=== PATIENT | female | born 2000 | race African-American/Black ===

== ENCOUNTER 2024-02-13 11:52 | Emergency (ER) | payer OTHER, MEDICAID, SELFPAY ==
[2024-02-13 11:54] VITALS: BP 121/66; PULSE 85; RESP 16; TEMP 36.6; O2SAT 98; BMI 34.2
--- NOTE | 2024-02-13 12:09 | ED.VIS.FEGU ---
HPI <DANA Dior - Last Filed: 02/13/24 15:18> HPI - Female History of Present Illness Chief Complaint: Vag Bld, Preg Narrative Narrative: 23-year-old female states she is about 13 weeks . A week and a half ago she had a blood clot passed. 2 days ago she had an ultrasound at [facility] in [place] confirming an intrauterine with a heartbeat detected. Today around 9 AM she started to have light vaginal bleeding and abdominal cramping. She states she is just using toilet paper in her underwear. She has no fever, chills, nausea, vomiting, or urinary symptoms. She has history of 2 C-sections. She is not on any medications. PFSH <DANA Dior - Last Filed: 02/13/24 15:18> PFSH Medical History no medical history Home Medications NK 02/13/24 [History Last Taken Unknown] Allergy/AdvReac Type Severity Reaction Status Date / Time No Known Allergies Allergy Verified 02/13/24 11:54 Surgical History (Updated 02/13/24 @ 12:07 by Tatianna Juarez) Previous section Social History Smoking Status: Current every day smoker tobacco type: e-cigarettes ROS <DANA Dior - Last Filed: 02/13/24 15:18> ROS ED ROS Narrative Constitutional: Negative for fever, chills, malaise. GI: Positive for abdominal pain. Negative for nausea, vomiting : Negative for dysuria, hematuria or frequency. EXAM <DANA Dior - Last Filed: 02/13/24 15:18> Physical Exam Narrative Exam Narrative: CONST: Patient sitting in no acute distress. EYES: Normal inspection. NECK: Normal inspection. RESP: No respiratory distress, CTAB. CVS: Regular rate and rhythm, no murmur, no gallop. ABD: Soft with suprapubic tenderness, no guarding or rebound, nondistended. SKIN: Color normal, no rash, warm, dry, intact. EXTREMITIES: Normal appearance, no pedal edema. NEURO: Alert and answering questions appropriately. PSYCH: Normal affect. Const Vital Signs: 02/13/24 11:54 02/13/24 13:54 02/13/24 15:01 Temperature 97.9 F 98.0 F Temperature Source Temporal Pulse Rate 85 18 L 62 Respiratory Rate 16 22 H 16 Blood Pressure 121/66 H 157/124 H 110/71 Blood Pressure Mean 84 135 84 Pulse Ox 98 98 99 Oxygen Delivery Method Room Air Room Air <Dr. Kehinde Lomeli DO - Last Filed: 02/13/24 15:28> Physical Exam Const Vital Signs: 02/13/24 11:54 02/13/24 13:54 02/13/24 15:01 Temperature 97.9 F 98.0 F Temperature Source Temporal Pulse Rate 85 18 L 62 Respiratory Rate 16 22 H 16 Blood Pressure 121/66 H 157/124 H 110/71 Blood Pressure Mean 84 135 84 Pulse Ox 98 98 99 Oxygen Delivery Method Room Air Room Air MDM <DANA Dior - Last Filed: 02/13/24 15:18> MDM MDM Narrative Medical decision making narrative: External records reviewed from [facility] 02/10/2024 hCG quant is 37,283 02/11/24 transabdominal ultrasound shows single live fetus with a gestational age of 13 weeks, 6 days. Differential: Threatened , incomplete versus complete Consults: [facility] 23-year-old female states she is about 13 weeks confirmed by an ultrasound earlier this week. She presents with abdominal pain and bleeding. She appears well and nontoxic and has stable vital signs. Abdomen is soft with mild suprapubic tenderness. Labs show normal hemoglobin of 12.1. hCG quant is 25,825 which has dropped from outside records three days ago when it was 37,283. She is O+ so does not need RhoGAM. Urinalysis shows blood but no infection. While here patient used the restroom and states she has increased abdominal pain and heavier bleeding. I performed a pelvic exam and there is a moderate amount of fresh bright red blood in the vault. She is not hemorrhaging. I cannot fully visualize her cervix. Initially her pain was treated with [place] and Zofran by mouth but prior to getting the ultrasound she had increased pain and was given a dose of IV morphine 4 mg and Zofran. The profile grinder technician states she could see a fetus with a heartbeat but it is in the lower cervix indicating a miscarriage. I spoke with on-call [facility] physician, Dr. Darby, who recommended since she is around 14 weeks she should be transferred there since bleeding could become significant. Official report shows 13-week 5-day threatened in progress. I explained these findings to the patient and she is comfortable with this plan. Plan will be for EMS transport to [facility] triage. Lab Data Attestation: I reviewed the patient's lab results. Labs: Laboratory Results - last 24 hr 02/13/24 02/13/24 12:10 12:42 WBC 12.6 H RBC 4.08 L Hgb 12.1 Hct 35.3 L MCV 86.5 MCH 29.7 MCHC 34.3 RDW Std Deviation 46.9 H RDW Coeff of Uday 14.7 H Plt Count 382 MPV 8.9 Immature Gran % (Auto) 0.400 Neut % (Auto) 69.2 Lymph % (Auto) 24.1 [place] % (Auto) 5.3 Eos % (Auto) 0.8 Baso % (Auto) 0.2 Absolute Neuts (auto) 8.7 H Absolute Lymphs (auto) 3.04 Nucleated RBC % 0 HCG, Quant 77514 H Urine Color Yellow Urine Clarity Sl. Cloudy Urine pH 7.0 Ur Specific [place] 1.015 Urine Protein 30 H Urine Glucose (UA) Normal Urine Ketones Negative Urine Occult Blood 250 H Urine Nitrite Negative Urine Bilirubin Negative Urine Urobilinogen Normal Ur Leukocyte Esterase 500 H Urine RBC > 100 SEEN Urine WBC 5-10 SEEN Ur Squamous Epith Cells 0-5 SEEN Urine Bacteria 0 SEEN Urine Mucus 0 SEEN Urine Trichomonas 0-5 SEEN Blood Type O POSITIVE Radiography Diagnostic Testing: Clinical Impression(s) from Imaging Studies Obstetrics Ultrasound 02/13/24 13:02 IMPRESSION: 13 week 5 day threatened AB in progress N.B. : The above Results were Read Back by Burt Sharma MD to DANA Dior, and understanding confirmed on 02/13/2024 15:12:46 (ET). Electronically Signed: Burt Sharma MD at 15:13 EDT , ADDENDUM: 02/13/24 5810 IMPRESSION: 13 week 5 day threatened AB in progress N.B. : The above Results were Read Back by Burt Sharma MD to DANA Dior, and understanding confirmed on 02/13/2024 15:12:46 (ET). Electronically Signed: Burt Sharma MD at 15:13 EDT , <Dr. Kehinde oLmeli, DO - Last Filed: 02/13/24 15:28> MDM MDM Narrative Medical decision making narrative: External records reviewed from [facility] 02/10/2024 hCG quant is 37,283 02/11/24 transabdominal ultrasound shows single live fetus with a gestational age of 13 weeks, 6 days. Differential: Threatened , incomplete versus complete Consults: [facility] 23-year-old female states she is about 13 weeks confirmed by an ultrasound earlier this week. She presents with abdominal pain and bleeding. She appears well and nontoxic and has stable vital signs. Abdomen is soft with mild suprapubic tenderness. Labs show normal hemoglobin of 12.1. hCG quant is 25,825 which has dropped from outside records three days ago when it was 37,283. She is O+ so does not need RhoGAM. Urinalysis shows blood but no infection. While here patient used the restroom and states she has increased abdominal pain and heavier bleeding. I performed a pelvic exam and there is a moderate amount of fresh bright red blood in the vault. She is not hemorrhaging. I cannot fully visualize her cervix. Initially her pain was treated with [place] and Zofran by mouth but prior to getting the ultrasound she had increased pain and was given a dose of IV morphine 4 mg and Zofran. The profile grinder technician states she could see a fetus with a heartbeat but it is in the lower cervix indicating a miscarriage. I spoke with on-call [facility] physician, Dr. Darby, who recommended since she is around 14 weeks she should be transferred there since bleeding could become significant. Official report shows 13-week 5-day threatened in progress. I explained these findings to the patient and she is comfortable with this plan. Plan will be for EMS transport to [facility] triage. This patient was seen with a PA/TRUCK REPAIR SERVICE ESTIMATOR Individually assessed they patient including history and physical. I have reviewed everything on the chart that is available and agree with the documentation provided by the PA/TRUCK REPAIR SERVICE ESTIMATOR including discussion about the assessment, treatment plan, discussion, and return precautions. Patient seen and evaluated for abdominal pain in . Recently had ultrasound which showed viable fetus a couple days ago. Patient having vaginal bleeding which is worsened. 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 Patient was initially given hydrocodone. Bedside ultrasound utilized by ED physician I see no intrauterine . Formal ultrasound was obtained. Basic lab work shows normal hemoglobin 12.1. White blood cell count 12.6. hCG is gone down to 25,025 and urinalysis is contaminated. Blood type is O+ so she does not need RhoGAM. Transvaginal ultrasound shows concern for miscarriage in progress and after speaking with [facility] at [facility] patient will be transferred for monitoring. She is amenable to this plan. Lab Data Labs: Laboratory Results - last 24 hr 02/13/24 02/13/24 12:10 12:42 WBC 12.6 H RBC 4.08 L Hgb 12.1 Hct 35.3 L MCV 86.5 MCH 29.7 MCHC 34.3 RDW Std Deviation 46.9 H RDW Coeff of Uday 14.7 H Plt Count 382 MPV 8.9 Immature Gran % (Auto) 0.400 Neut % (Auto) 69.2 Lymph % (Auto) 24.1 [place] % (Auto) 5.3 Eos % (Auto) 0.8 Baso % (Auto) 0.2 Absolute Neuts (auto) 8.7 H Absolute Lymphs (auto) 3.04 Nucleated RBC % 0 HCG, Quant 20765 H Urine Color Yellow Urine Clarity Sl. Cloudy Urine pH 7.0 Ur Specific [place] 1.015 Urine Protein 30 H Urine Glucose (UA) Normal Urine Ketones Negative Urine Occult Blood 250 H Urine Nitrite Negative Urine Bilirubin Negative Urine Urobilinogen Normal Ur Leukocyte Esterase 500 H Urine RBC > 100 SEEN Urine WBC 5-10 SEEN Ur Squamous Epith Cells 0-5 SEEN Urine Bacteria 0 SEEN Urine Mucus 0 SEEN Urine Trichomonas 0-5 SEEN Blood Type O POSITIVE Radiography Diagnostic Testing: Clinical Impression(s) from Imaging Studies Obstetrics Ultrasound 02/13/24 13:02 IMPRESSION: 13 week 5 day threatened AB in progress N.B. : The above Results were Read Back by Burt Sharma MD to DANA Dior, and understanding confirmed on 02/13/2024 15:12:46 (ET). Electronically Signed: Burt Sharma MD at 15:13 EDT Reading Location ID and State: [address] [place] [address] Tel , Service support , ADDENDUM: 02/13/24 1520 IMPRESSION: 13 week 5 day threatened AB in progress N.B. : The above Results were Read Back by Burt Sharma MD to DANA Dior, and understanding confirmed on 02/13/2024 15:12:46 (ET). Electronically Signed: Burt Sharma MD at 15:13 EDT Reading Location ID and State: [facility] Tel , Service support , Discharge Plan Triage Chief Complaint: Vag Bld, Preg Other Complaint: ED Midlevel Provider: Karla Jeff ED Provider: Kehinde Lomeli Dx/Rx/DC Orders Clinical Impression: Incomplete miscarriage Prescriptions: No Action NK Primary Care Provider: CR TURCIOS Referrals: [facility] Doctor,Out of [Non-Staff] - Disposition Disposition: Acute Care Hospital Discharge Location: [facility] Discharge Date/Time: 02/13/24 15:19
[2024-02-13 12:37] LABS: Absolute Lymphocyte Count 3.04 X10^3/uL (0.83-4.51); Absolute Neutrophil Count 8.7 X10^3/uL (2.0-7.7); Basophil# 0.03 X10^3/uL; Basophil% 0.2 % (0-1); Eosinophils% 0.8 % (0-5); Hematocrit 35.3 % (37-47); Hemoglobin 12.1 g/dL (12.0-15.0); Lymphocyte # 3.04 X10^3/ul (0.83-4.51); Lymphocyte % 24.1 % (19-41); Mean Corp Hgb Conc 34.3 g/dL (32-36); Mean Corpuscular Hgb 29.7 pg (27.0-32.0); Mean Corpuscular Volume 86.5 fL (81-99); Mean Platelet Vol. 8.9 fl (6.2-12.0); Monocyte# 0.67 X10^3/uL; Monocyte% 5.3 % (0-10); NRBC Flagged by Analyzer 0 % (0-5); Neutrophil # 8.73 X10^3/uL (2.7-7.7); Neutrophil % 69.2 % (47-70); Platelet Count 382 K/mm3 (150-450); RBC Distribution Width CV 14.7 % (11.6-14.6); RBC Distribution Width SD 46.9 fl (35.1-43.9); Red Blood Count 4.08 M/mm3 (4.2-5.4); White Blood Count 12.6 K/mm3 (4.4-11.0)
[2024-02-13 12:48] LABS: Bacteria 0 SEEN /hpf (None Seen); Mucous, Urine 0 SEEN /hpf (<or=2+)
[2024-02-13 12:51] LABS: Color, Urine Yellow (Yellow); Glucose, Dipstick Normal (Normal); Ketone-Dipstick Negative (Negative); Leukocyte Esterase-Dipstick 500 /ul (Negative); Nitrite-Dipstick Negative (Negative); Occult Blood-Urine 250 /ul (Negative); Protein-Dipstick 30 mg/dl (Negative); Specific Gravity, Urine 1.015 (1.002-1.030); Urine Bilirubin Dipstick Negative (Negative); Urine Clarity Sl. Cloudy (Clear); Urine Urobilinogen Normal (Normal)
[2024-02-13 12:59] LABS: Red Blood Cells-Urine > 100 SEEN /hpf (0-5); Trichomonas 0-5 SEEN /hpf (None Seen)
[2024-02-13 13:00] LABS: Squamous Epithelial Cells - UA 0-5 SEEN /hpf (5-10); White Blood Cells 5-10 SEEN /hpf (0-5)
--- NOTE | 2024-02-13 13:02 | US_ITS ---
STUDY: Second TRIMESTER OBSTETRICAL ULTRASOUND REASON FOR EXAM: Female, 23 years old pain LMP: November 06, 2023 TECHNIQUE: Transabdominal and Transvaginal TECHNICAL QUALITY: Adequate. PRIOR ULTRASOUND: None. FINDINGS: Gestational sac and fetus are within the cervix which is open. There is visualization of a single gestational sac in a normal intrauterine position. The gestational sac shape is within normal limits. Placenta is fundal. There is visualization of a live embryo. The crown-rump length (CRL) measures 7.8 cm, indicating an estimated gestational age (EGA) of 13 weeks, 5 days. There is demonstrated cardiac activity with a heart rate of 174 bpm. The estimated gestation age (EGA) by LMP is 14 weeks, 1 days. The estimated date of delivery (YOKASTA) by LMP is August 12, 2024. The estimated gestation age (EGA) by US is 13 weeks, 5 days. The estimated date of delivery (YOKASTA) by US is August 15, 2024. The uterus measures 16.4 x 8.4 x 8.2 cm. There is no demonstrated uterine fibroid. The cervix is closed. The right ovary not visualized. The left ovary measures 4 x 2.2 x 3.1 cm. There is no left ovarian cyst. There is no visualized left adnexal mass or complex lesion. There is no fluid in the cul de sac. US/Transvaginal w/Preg US IMPRESSION: 13 week 5 day threatened AB in progress N.B. : The above Results were Read Back by Burt Sharma MD to DANA Dior, and understanding confirmed on 02/13/2024 15:12:46 (ET). Electronically Signed: Burt Sharma MD at 15:13 EDT Reading Location ID and State: [facility] / [place] Tel , Service support ,
[2024-02-13] MEDS: Acetaminophen 500 MG Tablet PO (13:12)
[2024-02-13] MEDS: Ondansetron ODT 4 MG Tablet PO (13:12)
[2024-02-13] MEDS: HYDROcodone Bitartrate/Apap 5/325 Tablet PO (13:12)
[2024-02-13 13:54] VITALS: BP 157/124; PULSE 18; RESP 22; O2SAT 98
[2024-02-13 14:00] LABS: hCG Titer Quant., Serum 25825 mIU/mL (1-3)
[2024-02-13] MEDS: Ondansetron 4 MG/2 ML Vial IV (14:08)
[2024-02-13] MEDS: Morphine 4 MG/ML Syringe IV (14:08)
[2024-02-13 15:01] VITALS: BP 110/71; PULSE 62; RESP 16; TEMP 36.7; O2SAT 99
== END 2024-02-13 15:19 | disposition short-term general hospital (02) ==
LOC: ED 12:28
PROVIDERS: Physician Assistant; Emergency Provider Student in an Organized Health Care Education/Training Program; Visit Provider Student in an Organized Health Care Education/Training Program
DX: O03.4 Incomplete spontaneous abortion without complication (principal); O99.331 Smoking (tobacco) complicating pregnancy, first trimester; F17.290 Nicotine dependence, other tobacco product, uncomplicated; Z3A.13 13 weeks gestation of pregnancy
CPT/HCPCS: 76817; 81001; 84702; 85025; 86900; 86901; 96374; 96375; 99283; A4216; J2405